=== PATIENT | male | born 1970 | race Caucasian/White ===

== ENCOUNTER 2024-12-31 08:38 | Emergency (ER) | payer MEDICAID ==
[~2024-12-31] VITALS: Ht 182.9 cm; Wt 90.0 kg
[2024-12-31 08:40] VITALS: O2SAT 99
[2024-12-31] MEDS: ACETAMINOPHEN 325MG TABLET PO ONE (09:42)
[2024-12-31] MEDS ORDERED: ACET-2708 MT (10:00)
[2024-12-31 10:35] VITALS: BP 112/71; PULSE 81; RESP 17; TEMP 36.7; O2SAT 99
[2024-12-31] MEDS ORDERED: IBUP-2029 MT (18:59)
== END 2024-12-31 10:41 | disposition home or self-care (01) ==
LOC: ER 08:38
DX: B34.9 Viral infection, unspecified (principal)
CPT/HCPCS: 71045; 99283

== ENCOUNTER 2024-12-31 14:18 | Emergency (ER) | payer MEDICAID ==
[~2024-12-31] VITALS: Ht 188 cm; Wt 99.0 kg
[~2024-12-31 14:18] MED LIST: ACET-2708 MT
[2024-12-31 14:26] VITALS: O2SAT 100
[2024-12-31] MEDS: ACETAMINOPHEN 325MG TABLET PO ONE (15:39)
[2024-12-31 15:56] LABS: BASOPHILS % 0.7 % (0.0-2.0); EOSINOPHILS % 2.7 % (0.0-5.0); HEMATOCRIT. 37.8 % (42.0-52.0); HEMOGLOBIN. 12.2 g/dL (14.0-18.0); LYMPHOCYTES % 26.4 % (20.0-50.0); MEAN PLATELET VOLUME 8.9 fl (7.4-10.4); MONOCYTES % 5.2 % (2.0-8.0); NEUTROPHILS % 65.0 % (40.0-76.0); PLATELET 467 x1000/uL (130-400); RED BLOOD CELL COUNT 4.31 mill/uL (4.7-6.1); RED CELL DISTRIBUTION WIDTH 16.6 % (11.6-14.6)
[2024-12-31 16:05] LABS: CREATININE 0.9 mg/dL (0.6-1.3)
[2024-12-31 16:06] LABS: ETHANOL BLOOD < 10 mg/dL (<10); UREA NITROGEN BLOOD 13 mg/dL (9-23)
[2024-12-31 16:07] LABS: ASPARTATE AMINOTRANSFERASE 21 IU/L (<34); BILIRUBIN DIRECT 0.1 mg/dL (<=3.0)
[2024-12-31 16:08] LABS: BILIRUBIN TOTAL 0.4 mg/dL (0.1-1.0); PROTEIN TOTAL 7.6 g/dL (6.0-8.3)
[2024-12-31] MEDS ORDERED: IBUP-2029 MT (18:59)
[2024-12-31] MEDS: IBUPROFEN 800MG TABLET PO ONE (19:14)
[2024-12-31 19:16] VITALS: BP 116/77; PULSE 96; RESP 16; TEMP 36.9; O2SAT 100
== END 2024-12-31 19:25 | disposition home or self-care (01) ==
LOC: ER 14:18
DX: S09.90XA Unspecified injury of head, initial encounter (principal); R11.10 Vomiting, unspecified; M25.521 Pain in right elbow; M54.2 Cervicalgia; M25.552 Pain in left hip; Z86.59 Personal history of other mental and behavioral disorders; W18.30XA Fall on same level, unspecified, initial encounter; Y93.01 Activity, walking, marching and hiking; Y92.89 Other specified places as the place of occurrence of the external cause; Y99.8 Other external cause status
CPT/HCPCS: 36415; 73080; 73502; 80048; 80076; 80320; 85025; 99284; G0480

== ENCOUNTER 2024-12-31 19:38 | Emergency (ER) | payer MEDICAID ==
[~2024-12-31] VITALS: Ht 182.9 cm; Wt 93.0 kg
[~2024-12-31 19:38] MED LIST changes: +IBUP-2029 MT
[2024-12-31 19:46] VITALS: O2SAT 100
[2024-12-31 20:29] VITALS: BP 103/68; PULSE 99; RESP 12; TEMP 36.7; O2SAT 100
== END 2024-12-31 20:31 | disposition home or self-care (01) ==
LOC: ER 19:38
DX: M25.559 Pain in unspecified hip (principal); Z59.00 Homelessness unspecified
CPT/HCPCS: 99281; 99282

== ENCOUNTER 2025-01-01 08:54 | Emergency (ER) | payer BC, MEDICAID ==
[~2025-01-01] VITALS: Ht 172.7 cm; Wt 75.0 kg
[2025-01-01 08:59] VITALS: O2SAT 99
[2025-01-01 10:09] LABS: CREATININE 1.1 mg/dL (0.6-1.3); UREA NITROGEN BLOOD 18 mg/dL (9-23)
[2025-01-01 10:10] LABS: BASOPHILS % 0.7 % (0.0-2.0); EOSINOPHILS % 2.6 % (0.0-5.0); HEMATOCRIT. 39.0 % (42.0-52.0); HEMOGLOBIN. 12.6 g/dL (14.0-18.0); LYMPHOCYTES % 32.2 % (20.0-50.0); MEAN PLATELET VOLUME 9.2 fl (7.4-10.4); MONOCYTES % 5.2 % (2.0-8.0); NEUTROPHILS % 59.3 % (40.0-76.0); PLATELET 464 x1000/uL (130-400); RED BLOOD CELL COUNT 4.45 mill/uL (4.7-6.1); RED CELL DISTRIBUTION WIDTH 16.7 % (11.6-14.6)
[2025-01-01 10:11] LABS: ASPARTATE AMINOTRANSFERASE 16 IU/L (<34); BILIRUBIN DIRECT 0.1 mg/dL (<=3.0); BILIRUBIN TOTAL 0.4 mg/dL (0.1-1.0)
[2025-01-01 10:12] LABS: PROTEIN TOTAL 7.4 g/dL (6.0-8.3)
[2025-01-01 11:08] VITALS: BP 129/75; PULSE 88; RESP 18; TEMP 37; O2SAT 99
== END 2025-01-01 11:15 | disposition home or self-care (01) ==
LOC: ER 08:54
DX: R19.7 Diarrhea, unspecified (principal); Z59.00 Homelessness unspecified
CPT/HCPCS: 36415; 80048; 80076; 85025; 99283